=== PATIENT | male | born 1950 | race Two or more races ===

== ENCOUNTER 2022-01-16 14:16 | Inpatient (IN) | payer MEDICARE, OTHER ==
[2022-01-16] MEDS ORDERED: ONDANSETRON 4 MG/2 ML VIAL IVP STA (16:59)
[2022-01-16] MEDS ORDERED: SODIUM CHLORIDE 0.9% 500 ML 500 ML IV STA (16:59)
[2022-01-16] MEDS ORDERED: FAMOTIDINE 20 MG/2 ML VIAL IV STA (17:02)
[2022-01-16] MEDS ORDERED: SODIUM CHLORIDE 0.9% 1,000 ML IV STA ×2 (17:03)
--- NOTE | 2022-01-16 17:13 | ED ---
Nausea/Vomiting/Diarrhea HPI - General Chief complaint: Nausea/Vomiting/Diarrhea Stated complaint: Hernia, Nausea, revisit Time Seen by Provider: 01/16/22 16:47 Source: patient, family, RN notes reviewed, old records reviewed Mode of arrival: ambulatory Limitations: no limitations - History of Present Illness Initial comments: 71-year-old male history of umbilical hernia who was seen here yesterday had a reduction of his hernia he had symptoms starting 4 days ago. Discharged with since being discharged he states he had nausea vomiting decreased oral intake no bowel movement the has passed a slight amount of gas he states. He states last night he had every 20 minutes dry heaves. He's had some fever and chills with smelly urine. This was a she's had some burning pain to the upper abdomen going up into his chest. He states he does vomit it is bilious. No increased pain with deep breathing. He does state her hurts when he tries to lay down flat. MD complaint: nausea, vomiting, other - Related Data Allergies Allergy/AdvReac Type Severity Reaction Status Date / Time No Known Allergies Allergy Verified 01/16/22 16:24 Review of Systems ROS Statement: Those systems with pertinent positive or pertinent negative responses have been documented in the HPI. ROS Other: All systems not noted in ROS Statement are negative. Past Medical History Past Medical History: Hypertension Additional Past Medical History / Comment(s): hernia History of Any Multi-Drug Resistant Organisms: None Reported Past Surgical History: No Surgical Hx Reported Past Psychological History: No Psychological Hx Reported Smoking Status: Never smoker Past Alcohol Use History: Daily Past Drug Use History: None Reported General Exam - General Exam Comments Initial Comments: This is a well-developed well-nourished awake alert oriented times 3 male he does demonstrate an obese abdomen Limitations: no limitations General appearance: alert, anxious Head exam: Present: atraumatic, normocephalic, normal inspection Eye exam: Present: normal appearance, PERRL, EOMI. Absent: scleral icterus, conjunctival injection, periorbital swelling ENT exam: Present: mucous membranes dry Neck exam: Present: normal inspection, full ROM, other (No stridor JVD or bruits). Absent: tenderness, meningismus, lymphadenopathy Respiratory exam: Present: normal lung sounds bilaterally. Absent: respiratory distress, wheezes, rales, rhonchi, stridor Cardiovascular Exam: Present: regular rate, normal rhythm, normal heart sounds. Absent: systolic murmur, diastolic murmur, rubs, gallop, clicks GI/Abdominal exam: Present: soft, distended, tenderness (Obese abdomen minimal tenderness palpation at this time. He has palpable.), normal bowel sounds. Absent: guarding, rebound, rigid, bruit, pulsatile mass Extremities exam: Present: normal inspection, full ROM, normal capillary refill. Absent: tenderness, pedal edema, joint swelling, calf tenderness Back exam: Present: normal inspection Neurological exam: Present: alert, oriented X3, CN II-XII intact Psychiatric exam: Present: normal affect, normal mood Skin exam: Present: warm, dry, intact, normal color. Absent: rash Course Vital Signs 01/16/22 16:20 Temperature 98.1 F Pulse Rate 83 Respiratory 20 Rate Blood Pressure 163/92 Medical Decision Making - Medical Decision Making I did discuss the case with Dr. chavez and with Dr. Andrews patient be admitted IV hydration and the patient can be given ice chips. - Lab Data Result diagrams: 01/16/22 17:48 01/16/22 17:48 Lab Results 01/16/22 01/16/22 01/16/22 Range/Units 17:48 17:48 17:48 WBC 12.3 H (3.8-10.6) k/uL RBC 5.22 (4.30-5.90) m/uL Hgb 15.7 (13.0-17.5) gm/dL Hct 47.8 (39.0-53.0) % MCV 91.6 (80.0-100.0) fL MCH 30.1 (25.0-35.0) pg MCHC 32.9 (31.0-37.0) g/dL RDW 13.1 (11.5-15.5) % Plt Count 197 (150-450) k/uL MPV 9.4 Neutrophils % 78 % Lymphocytes % 12 % Monocytes % 8 % Eosinophils % 1 % Basophils % 1 % Neutrophils # 9.7 H (1.3-7.7) k/uL Lymphocytes # 1.4 (1.0-4.8) k/uL Monocytes # 0.9 (0-1.0) k/uL Eosinophils # 0.1 (0-0.7) k/uL Basophils # 0.1 (0-0.2) k/uL Sodium 130 L (137-145) mmol/L Potassium 4.3 (3.5-5.1) mmol/L Chloride 90 L (98-107) mmol/L Carbon Dioxide 30 (22-30) mmol/L Anion Gap 10 mmol/L BUN 31 H (9-20) mg/dL Creatinine 0.77 (0.66-1.25) mg/dL Est GFR (CKD-EPI)AfAm >90 (>60 ml/min/1.73 sqM) Est GFR (CKD-EPI)NonAf >90 (>60 ml/min/1.73 sqM) Glucose 127 H (74-99) mg/dL Plasma Lactic Acid Emanuel (0.7-2.0) mmol/L Calcium 9.9 (8.4-10.2) mg/dL Magnesium 2.1 (1.6-2.3) mg/dL Total Bilirubin 0.9 (0.2-1.3) mg/dL AST 39 (17-59) U/L ALT 45 (4-49) U/L Alkaline Phosphatase 46 (38-126) U/L Creatine Kinase 58 (55-170) U/L Troponin I (0.000-0.034) ng/mL Total Protein 7.5 (6.3-8.2) g/dL Albumin 4.7 (3.5-5.0) g/dL Lipase 120 (23-300) U/L Urine Color Yellow Urine Appearance Clear (Clear) Urine pH 6.5 (5.0-8.0) Ur Specific [place] >1.050 H (1.001-1.035) Urine Protein Trace H (Negative) Urine Glucose (UA) Negative (Negative) Urine Ketones Negative (Negative) Urine Blood Negative (Negative) Urine Nitrite Negative (Negative) Urine Bilirubin Negative (Negative) Urine Urobilinogen <2.0 (<2.0) mg/dL Ur Leukocyte Esterase Negative (Negative) 01/16/22 01/16/22 Range/Units 17:48 17:48 WBC (3.8-10.6) k/uL RBC (4.30-5.90) m/uL Hgb (13.0-17.5) gm/dL Hct (39.0-53.0) % MCV (80.0-100.0) fL MCH (25.0-35.0) pg MCHC (31.0-37.0) g/dL RDW (11.5-15.5) % Plt Count (150-450) k/uL MPV Neutrophils % % Lymphocytes % % Monocytes % % Eosinophils % % Basophils % % Neutrophils # (1.3-7.7) k/uL Lymphocytes # (1.0-4.8) k/uL Monocytes # (0-1.0) k/uL Eosinophils # (0-0.7) k/uL Basophils # (0-0.2) k/uL Sodium (137-145) mmol/L Potassium (3.5-5.1) mmol/L Chloride (98-107) mmol/L Carbon Dioxide (22-30) mmol/L Anion Gap mmol/L BUN (9-20) mg/dL Creatinine (0.66-1.25) mg/dL Est GFR (CKD-EPI)AfAm (>60 ml/min/1.73 sqM) Est GFR (CKD-EPI)NonAf (>60 ml/min/1.73 sqM) Glucose (74-99) mg/dL Plasma Lactic Acid Emanuel 1.2 (0.7-2.0) mmol/L Calcium (8.4-10.2) mg/dL Magnesium (1.6-2.3) mg/dL Total Bilirubin (0.2-1.3) mg/dL AST (17-59) U/L ALT (4-49) U/L Alkaline Phosphatase (38-126) U/L Creatine Kinase (55-170) U/L Troponin I <0.012 (0.000-0.034) ng/mL Total Protein (6.3-8.2) g/dL Albumin (3.5-5.0) g/dL Lipase (23-300) U/L Urine Color Urine Appearance (Clear) Urine pH (5.0-8.0) Ur Specific [place] (1.001-1.035) Urine Protein (Negative) Urine Glucose (UA) (Negative) Urine Ketones (Negative) Urine Blood (Negative) Urine Nitrite (Negative) Urine Bilirubin (Negative) Urine Urobilinogen (<2.0) mg/dL Ur Leukocyte Esterase (Negative) - Radiology Data Radiology results: report reviewed (Image reviewed as well as report evidence of mechanical bowel obstruction with incarceration of the umbilical herniaablation noted.), image reviewed Disposition Clinical Impression: Small bowel obstruction, Incarcerated umbilical hernia, Dehydration, Nausea & vomiting, Failure of outpatient treatment Disposition: ADMITTED IP TO THIS [facility] Condition: Stable Referrals: John Mederos DO [Primary Care Provider] - 1-2 days Decision Date: 01/16/22 Decision Time: 21:00
[2022-01-16 18:09] LABS: Basophils # (A) 0.1 k/uL (0-0.2); Basophils % (A) 1 %; Eosinophils # (A) 0.1 k/uL (0-0.7); Eosinophils % (A) 1 %; HCT 47.8 % (39.0-53.0); HGB 15.7 gm/dL (13.0-17.5); Lymphocytes # (A) 1.4 k/uL (1.0-4.8); Lymphocytes % (A) 12 %; MCH 30.1 pg (25.0-35.0); MCHC 32.9 g/dL (31.0-37.0); MCV 91.6 fL (80.0-100.0); Mean Platelet Volume 9.4; Monocytes # (A) 0.9 k/uL (0-1.0); Monocytes % (A) 8 %; Neutrophils # (A) 9.7 k/uL (1.3-7.7); Neutrophils % (A) 78 %; Platelet Count 197 k/uL (150-450); RBC 5.22 m/uL (4.30-5.90); RDW 13.1 % (11.5-15.5); WBC 12.3 k/uL (3.8-10.6)
--- NOTE | 2022-01-16 18:12 | XR ---
EXAMINATION TYPE: XR KUB DATE OF EXAM: 01/16/2022 COMPARISON: None HISTORY: Abdominal pain TECHNIQUE: 2 views upright FINDINGS: There are multiple dilated small bowel fluid levels. No free air. Lung bases are clear of c onsolidation. There are no definite calcifications over the kidneys. IMPRESSION: Dilated small bowel suggestive of mechanical small bowel obstruction. No free air. Intest inal dilation similar to CT scan yesterday.
[2022-01-16 18:15] LABS: Glucose 127 mg/dL (74-99)
[2022-01-16 18:16] LABS: ALT 45 U/L (4-49); AST 39 U/L (17-59); African American GFR (CKD) >90 (>60 ml/min/1.73 sqM); Albumin 4.7 g/dL (3.5-5.0); Alkaline Phosphatase 46 U/L (38-126); Anion Gap 10 mmol/L; Blood Urea Nitrogen 31 mg/dL (9-20); Calcium 9.9 mg/dL (8.4-10.2); Carbon Dioxide 30 mmol/L (22-30); Chloride 90 mmol/L (98-107); Creatine Kinase 58 U/L (55-170); Lipase 120 U/L (23-300); Magnesium 2.1 mg/dL (1.6-2.3); Non-African American GFR(CKD) >90 (>60 ml/min/1.73 sqM); Potassium 4.3 mmol/L (3.5-5.1); Sodium 130 mmol/L (137-145); Total Bilirubin 0.9 mg/dL (0.2-1.3); Total Protein 7.5 g/dL (6.3-8.2)
--- NOTE | 2022-01-16 19:51 | CT ---
EXAMINATION TYPE: CT abdomen pelvis w con DATE OF EXAM: 01/16/2022 COMPARISON: Yesterday HISTORY: Abdominal pain, unbillical hernia. N/V. Revisit from yesterday. CT DLP: 3406.4 mGycm Automated exposure control for dose reduction was used. CONTRAST: Performed with IV Contrast, patient injected with 100 mL of Isovue 300. Images obtained from the diaphragm to the floor the pelvis with IV contrast. There is mild subsegmental atelectasis at the lung bases. Heart size is normal. No pericardial effusi on. Liver is intact. There is some mild fatty infiltration of the liver. There is large fluid filled stomach. Spleen is intact. There is no pancreatic mass. There is extensive fatty infiltration of the pancreas. Gallbladder is intact. The bile ducts are not dilated. There is no adrenal mass. Kidneys show satisfactory contrast opacification. There is no hydronephrosi s. Ureters are not dilated. There is large incarcerated umbilical hernia containing loop of small bow el. There are some multiple dilated air and fluid-filled small bowel loops in the midabdomen. Small b owel measures up to 3.5 cm. No free air. No ascites. Bladder distends smoothly. No pelvic mass. No fr ee fluid in the pelvis. No inguinal hernia. Distal ileum is not dilated. The lumbar vertebra appear intact. No compression fracture. There is mild vacuum disc at L3-4 L4-5. Bony pelvis is intact. Hip joints are intact. There is some mild spurring of the acetabula. IMPRESSION: Incarcerated umbilical hernia containing small bowel and there is evidence of a mechanical small jose miguel l obstruction due to the hernia. The incarcerated loop of bowel is a change compared to exam yesterda y.
[2022-01-16 20:31] LABS: Appearance,Urine Clear (Clear); Bilirubin,Urine Negative (Negative); Blood,Urine Negative (Negative); Color,Urine Yellow; Glucose,Urine (UA) Negative (Negative); Ketones,Urine Negative (Negative); Leukocyte Esterase,Urine Negative (Negative); Nitrite,Urine Negative (Negative); PH, Urine 6.5 (5.0-8.0); Protein,Urine Trace (Negative); Specific Gravity,Urine >1.050 (1.001-1.035); Urobilinogen,Urine <2.0 mg/dL (<2.0)
[2022-01-16] MEDS ORDERED: NALOXONE 0.4 MG/ML 1 ML VIAL IV PRN (21:39)
[2022-01-16] MEDS ORDERED: ONDANSETRON 4 MG/2 ML VIAL IVP PRN (21:39)
[2022-01-16] MEDS ORDERED: HYDROmorphone 2 MG TAB PO PRN (23:00)
[2022-01-17] MEDS: SODIUM CHLORIDE 0.9% 1,000 ML IV SCH ×4 (00:49→23:09)
[2022-01-17 05:42] LABS: Basophils # (A) 0.1 k/uL (0-0.2); Basophils % (A) 0 %; Eosinophils # (A) 0.1 k/uL (0-0.7); Eosinophils % (A) 1 %; HCT 42.8 % (39.0-53.0); HGB 13.9 gm/dL (13.0-17.5); Lymphocytes % (A) 17 %; MCH 30.5 pg (25.0-35.0); MCHC 32.6 g/dL (31.0-37.0); MCV 93.6 fL (80.0-100.0); Mean Platelet Volume 9.5; Monocytes # (A) 1.1 k/uL (0-1.0); Monocytes % (A) 9 %; Neutrophils # (A) 8.2 k/uL (1.3-7.7); Neutrophils % (A) 71 %; Platelet Count 175 k/uL (150-450); RBC 4.57 m/uL (4.30-5.90); RDW 13.2 % (11.5-15.5); WBC 11.6 k/uL (3.8-10.6)
[2022-01-17 06:55] LABS: ALT 46 U/L (4-49); AST 33 U/L (17-59); African American GFR (CKD) >90 (>60 ml/min/1.73 sqM); Albumin 3.6 g/dL (3.5-5.0); Alkaline Phosphatase 44 U/L (38-126); Anion Gap 7 mmol/L; Blood Urea Nitrogen 29 mg/dL (9-20); Calcium 8.9 mg/dL (8.4-10.2); Carbon Dioxide 28 mmol/L (22-30); Chloride 97 mmol/L (98-107); Glucose 99 mg/dL (74-99); Non-African American GFR(CKD) >90 (>60 ml/min/1.73 sqM); Potassium 3.5 mmol/L (3.5-5.1); Sodium 132 mmol/L (137-145); Total Bilirubin 0.8 mg/dL (0.2-1.3); Total Protein 5.9 g/dL (6.3-8.2)
[2022-01-17] MEDS ORDERED: ceFAZolin 3 GM in SODIUM CHLORIDE 0.9% 100 ML IVPB PRN (07:00)
--- NOTE | 2022-01-17 08:18 | XR ---
EXAMINATION TYPE: XR abdomen 2V DATE OF EXAM: 01/17/2022 COMPARISON: X-ray dated 01/16/2022 INDICATION: Bowel obstruction TECHNIQUE: 4 views of the abdomen FINDINGS: No free air under the diaphragm. Multiple air-fluid levels with small bowel dilatation measuring up t o 5.9 cm seen in the left side of the abdomen. Right-sided small bowel loops are not dilated. This is suggestive of acute mechanical small bowel obstruction. No evidence of colonic obstruction. Gas is seen in the rectum. Degenerative changes of the lower thor acic spine and lower lumbar spine. IMPRESSION: Signs of acute mechanical small bowel obstruction as described above, for clinical correlation and musa rgical consultation.
[2022-01-17] MEDS ORDERED: cloNIDine 0.1 MG/24HR PATCH TRANSDERM SCH (09:00)
[2022-01-17] MEDS: LOSARTAN-HCTZ 50-12.5 MG 1 EACH TAB PO SCH (09:18)
[2022-01-17] MEDS: PANTOPRAZOLE 40 MG/10 ML VIAL IV SCH (09:18)
[2022-01-17] MEDS: LOSARTAN 50 MG TAB PO SCH (09:18)
--- NOTE | 2022-01-17 10:40 | P.CRDCN ---
History of Present Illness History of present illness: HISTORY OF PRESENTING ILLNESS This is a pleasant 71-year-old male past medical history significant for with hypertension, GERD. 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 We have been asked to see in consultation for cardiac clearance. Patient presents emergency department with worsening abdominal pain, nausea, vomiting, diarrhea. CT abdomen and pelvis revealed incarcerated hernia containing small bowel and there is evidence of a mechanical small bowel obstruction due to the hernia. Surgery was consulted, possible plan for Robotic ventral hernia repair today. He currently denies any abdominal pain, no nausea or vomiting. Patient denies any chest pain, shortness of breath, lightheadedness, dizziness, syncope or near syncope. He denies any history of coronary artery disease, [place], stroke, diabetes. He denies any family history of coronary artery disease. He is a nonsmoker. He states he is somewhat sedentary at home, but able to walk 1520 minutes on the treadmill. DIAGNOSTICS EKG reveals sinus rhythm, heart rate 81, no acute abnormalities. Laboratory reviewed, troponin negative, WBC 11.6, hemoglobin 13.9, platelets 175, sodium 132, potassium 3.5, BUN 29, serum creatinine 0.8, magnesium 2.1, lipase within normal limits Current home medications include losartan/hydrochlorothiazide 69368.5mg daily, omeprazole CT abdomen and pelvis revealed incarcerated hernia containing small bowel and there is evidence of a mechanical small bowel obstruction due to the hernia. Abdominal x-ray today revealed signs of acute mechanical small bowel obstruction. REVIEW OF SYSTEMS At the time of my exam: CONSTITUTIONAL: Denies fever or chills. CARDIOVASCULAR: Denies chest pain, shortness of breath, orthopnea, PND or palpitations. RESPIRATORY: Denies cough. GASTROINTESTINAL: Denies abdominal pain, diarrhea, constipation, nausea or vomiting. MUSCULOSKELETAL: Denies myalgias. NEUROLOGIC: Denies numbness, tingling, headacbe or weakness. ENDOCRINE: Denies fatigue, weight change, polydipsia or polyurina. GENITOURINARY: Denies burning, hematuria or urgency with micturation. HEMATOLOGIC: Denies history of anemia or bleeding. PHYSICAL EXAMINATION Blood pressure 141/96, heart rate 76, afebrile, oxygen saturation 94% on room air CONSTITUTIONAL: No apparent distress. HEENT: Head is normocephalic. Pupils are equal, round. Sclerae anicteric. Mucous membranes of the mouth are moist. No JVD. No carotid bruit. CHEST EXAMINATION: Lungs are clear to auscultation. No chest wall tenderness is noted on palpation or with deep breathing. HEART EXAMINATION: Regular rate and rhythm. S1, S2 heard. No murmurs, gallops or rub. ABDOMEN: Distended Positive bowel sounds. EXTREMITIES: 2+ peripheral pulses, no lower extremity edema and no calf tenderness. NEUROLOGIC EXAMINATION: Patient is awake, alert and oriented x3. ASSESSMENT Incarcerated Hernia Mechanical small bowel obstruction History of hypertension GERD PLAN 2D echocardiogram ordered From cardiology perspective, There are no absolute contraindications to undergo surgery at this time. Patient is hemodynamically stable. Patient is able to perform >4 METs levels of activity and does not have any acute cardiac conditi ons. Nurse practitioner note has been reviewed by physician. Signing provider agrees with the documented findings, assessment, and plan of care. Past Medical History Past Medical History: Hypertension Additional Past Medical History / Comment(s): hernia, squamous cell skin ca removed History of Any Multi-Drug Resistant Organisms: None Reported Past Surgical History: No Surgical Hx Reported Additional Past Surgical History / Comment(s): skin ca removal Past Psychological History: No Psychological Hx Reported Smoking Status: Never smoker Past Alcohol Use History: Daily Past Drug Use History: None Reported Medications and Allergies Home Medications Medication Instructions Recorded Confirmed Type Losartan/Hydrochlorothiazide 1 tab PO DAILY 01/16/22 01/16/22 History [Losartan-Hctz 100-12.5 mg Tab] Omeprazole [PriLOSEC] 40 mg PO DAILY PRN 01/16/22 01/16/22 History Allergies Allergy/AdvReac Type Severity Reaction Status Date / Time No Known Allergies Allergy Verified 01/16/22 21:57 Physical Exam Vitals: Vital Signs Temp Pulse Pulse Resp BP BP Pulse Ox 01/17/22 07:41 97.8 F 76 20 141/96 94 L 01/17/22 04:52 166/86 01/17/22 00:03 98.3 F 89 16 177/61 94 L 01/16/22 21:45 99.0 F 83 16 152/89 94 L 01/16/22 16:20 98.1 F 83 20 163/92 Intake and Output 01/16/22 01/17/22 01/17/22 22:59 06:59 14:59 Other: Weight 133.81 kg 133.81 kg Results 01/17/22 04:55 01/17/22 04:55 Cardiac Enzymes 01/16/22 01/16/22 01/17/22 Range/Units 17:48 17:48 04:55 AST 39 33 (17-59) U/L Troponin I <0.012 (0.000-0.034) ng/mL CBC 01/16/22 01/17/22 Range/Units 17:48 04:55 WBC 12.3 H 11.6 H (3.8-10.6) k/uL RBC 5.22 4.57 (4.30-5.90) m/uL Hgb 15.7 13.9 (13.0-17.5) gm/dL Hct 47.8 42.8 (39.0-53.0) % Plt Count 197 175 (150-450) k/uL Comprehensive Metabolic Panel 01/16/22 01/17/22 Range/Units 17:48 04:55 Sodium 130 L 132 L (137-145) mmol/L Potassium 4.3 3.5 (3.5-5.1) mmol/L Chloride 90 L 97 L (98-107) mmol/L Carbon Dioxide 30 28 (22-30) mmol/L BUN 31 H 29 H (9-20) mg/dL Creatinine 0.77 0.78 (0.66-1.25) mg/dL Glucose 127 H 99 (74-99) mg/dL Calcium 9.9 8.9 (8.4-10.2) mg/dL AST 39 33 (17-59) U/L ALT 45 46 (4-49) U/L Alkaline Phosphatase 46 44 (38-126) U/L Total Protein 7.5 5.9 L (6.3-8.2) g/dL Albumin 4.7 3.6 (3.5-5.0) g/dL Current Medications Generic Name Dose Route Start Last Admin Trade Name Freq PRN Reason Stop Dose Admin Enoxaparin Sodium 40 mg 01/17/22 06:30 Enoxaparin 40 Mg/0.4 Ml Syringe SQ Q24H JULIANE HCTZ/Losartan Potassium 1 each 01/17/22 09:00 Losartan-Hctz 50-12.5 Mg 1 Each Tab PO DAILY JULIANE Hydromorphone HCl 1 mg 01/16/22 23:00 Hydromorphone 2 Mg Tab PO Q3HR PRN Severe Pain Sodium Chloride 1,000 mls @ 130 mls/hr 01/16/22 21:45 01/17/22 00:49 Saline 0.9% IV 130 mls/hr .[id number] JULIANE Administration Cefazolin Sodium 3 gm/ Sodium 100 mls @ 200 mls/hr 01/17/22 07:00 Chloride IVPB 01/18/22 23:00 ONCE PRN Pre-Op Protocol Losartan Potassium 50 mg 01/17/22 09:00 Losartan 50 Mg Tab PO DAILY JULIANE Naloxone HCl 0.2 mg 01/16/22 21:39 Naloxone 0.4 Mg/Ml 1 Ml Vial IV Q2M PRN Opioid Reversal Ondansetron HCl 4 mg 01/16/22 21:39 01/16/22 23:14 Ondansetron 4 Mg/2 Ml Vial IVP 4 mg Q8HR PRN Administration Nausea And Vomiting Pantoprazole Sodium 40 mg 01/17/22 09:00 Pantoprazole 40 Mg/10 Ml Vial IV DAILY JULIANE Intake and Output 01/16/22 01/17/22 01/17/22 22:59 06:59 14:59 Other: Weight 133.81 kg 133.81 kg 01/17/22 04:55 01/17/22 04:55
--- NOTE | 2022-01-17 14:43 | P.GSCN ---
History of Present Illness Consult date: 01/17/22 History of present illness: CHIEF COMPLAINT: Vomiting HISTORY OF PRESENT ILLNESS: This is a 71-year-old male with a known history of umbilical hernia for about 7 years. Two days ago patient came into the ER due to abdominal discomfort and dry heaves. He had his hernia reduced. He had been doing well. However, he returned to the ER yesterday due to significant dry heaves, episode of vomiting bile and unable to reduce the hernia. He reports he has not had any stool for about 4 days. He is having flatus. His computed tomography scan had shown incarcerated umbilical hernia with dilation of small bowel suggestive of mechanical small bowel obstruction. He denies any cardiac history. Denies any past surgical history on the abdomen. PAST MEDICAL HISTORY: See list. PAST SURGICAL HISTORY: See list. MEDICATIONS: See list. ALLERGIES: See list. SOCIAL HISTORY: No illicit drug use. REVIEW OF SYSTEMS: CONSTITUTIONAL: Denies fever or chills. HEENT: Denies blurred vision, vision changes, or eye pain. Denies hemoptysis ENDOCRINE: Denies heat or cold intolerance. CARDIOVASCULAR: Denies chest pain or pressure. RESPIRATORY: No shortness of breath. GASTROINTESTINAL: Please refer to HPI NEURO: Denies history of seizures. PSYCH: No depression or suicidal ideation HEMATOLOGIC: Denies bleeding disorders. LYMPHATIC: The patient denies any lumps and bumps around the neck. GENITOURINARY: Denies any blood in urine or increased urinary frequency. MUSCULOSKELETAL: Denies myalgias. Denies joint swelling. Denies decreased range of motion beyond patients baseline. SKIN: Denies pruitis. Denies rash. PHYSICAL EXAM: VITAL SIGNS: Reviewed GENERAL: Well-developed in no acute distress. HEENT: No sclera icterus. Extraocular movements grossly intact. Moist buccal mucosa. Head is atraumatic, normocephalic. Hears conversational speech. No nasal d rainage. NECK: Supple without lymphadenopathy. CHEST: Non-labored respirations and equal bilateral excursions. CARDIOVASCULAR: Palpable 2+ radial pulses. ABDOMEN: Soft. Nondistended. Umbilical hernia unable to be reduced. Minimal tenderness with palpation. No discoloration. MUSCULOSKELETAL: No clubbing or cyanosis. NEUROLOGIC: No focal or lateralizing signs. Cranial nerves II through XII grossly intact. PSYCH: Appropriate affect. Alert and oriented to person, place and time. SKIN: Well perfused. Good skin turgor. LABORATORY DATA: WBC 11.6 Hgb 13.9 platelets 175 Sodium 132 potassium 3.5 creatinine 0.78 LFTs within normal range Lipase 120 IMAGING: Currently having issues with [employer] system. Unable to open the official computed tomography scan report ASSESSMENT: 1. Incarcerated umbilical hernia causing small bowel obstruction PLAN: -Patient scheduled for robotic ventral hernia repair with Dr. Jimenez today -Keep patient nothing by mouth -Patient was seen evaluated by cardiology for cardiac clearance -Continue supportive care -Continue IV fluids -Continue antiemetics Physician Forensic Dna Analyst note has been reviewed by physician. Signing provider agrees with the documented findings, assessment, and plan of care. REASON FOR CONSULTATION: Incarcerated ventral hernia with bowel obstruction HISTORY OF PRESENT ILLNESS: The patient is a 71 year old male who reports less than 10 year history of abdominal ventral hernia. Patient presents with morbid obesity BMI 46.2. Denies been hospitalized. Patient did go to the emergency room 24 hours prior to admission for incarcerated hernia which was attempted for reduction. His symptoms recurred. Diagnostic images demonstrated bowel obstruction. As result, patient was admitted. He is passing flatus. He is having bowel movements. Family is at bedside. Abdominal pain tolerable. PAST MEDICAL HISTORY: See list and reviewed PAST SURGICAL HISTORY: See list and reviewed MEDICATIONS: See list and reviewed ALLERGIES: See list and reviewed SOCIAL HISTORY: See list and reviewed FAMILY HISTORY: See list and reviewed REVIEW OF ORGAN SYSTEMS: CONSTITUTIONAL: No fevers or chills. Morbid obesity, BMI 46.2. EYES: Denies any trouble with vision. No glasses. HEENT: No difficulties with hearing. No nosebleeds. No difficulty swallowing. RESPIRATORY: Denies pneumonia. Denies any troubles with breathing or dyspnea on exertion. CARDIOVASCULAR: Has hypertension. GASTROINTESTINAL: Has new diarrhea since incarcerated hernia. Has gastroesophageal reflux disease. GENITOURINARY: Denies any blood in urine or increased urinary frequency. NEUROLOGICAL: Denies any numbness or tingling along the distal extremities. No seizure disorders or headaches. MUSCULOSKELETAL: Denies any back pain, stiffness or joint arthritis. SKIN: No current skin cancer. No rash. PSYCHIATRIC: Denies current depression or suicidal thoughts. ENDOCRINE: Denies current thyroid disorders. Denies any blood sugar glucose intolerance. HEME/LYMPHATIC: Denies any lumps and bumps around the neck. No recent deep venous thrombosis. ALLERGY/IMMUNOLOGY: No immunoglobulin therapy. No immune deficiencies. BREAST: Denies current breast lumps, pain or nipple discharge. PHYSICAL EXAM: VITALS: Reviewed CONSTITUTIONAL: Well developed and in no acute distress. EYES: Conjuctivae without sclera icterus. Extraocular movements grossly intact. HEAD, EARS, NOSE, THROAT: Moist buccal mucosa. Head is atraumatic, n ormocephalic. Hears conversational speech. No nasal drainage. NECK: Supple. No JV distention. No thyroidomegaly. RESPIRATORY: Non-labored respirations and equal bilateral excursions. No gross wheezes. CARDIOVASCULAR: Palpable 2+ radial pulses. ABDOMEN: Protuberant, incarcerated ventral hernia over 15 cm of epigastrium. LYMPH: No neck lymphadenopathy. MUSCULOSKELETAL: No clubbing cyanosis or edema. SKIN: Warm and well perfused with good skin turgor. NEUROLOGIC: Cranial nerves II through XII grossly intact. No focal or lateralizing signs. PSYCH: Appropriate affect. Alert and oriented to person, place and time. Displays appropriate insight. CLINCAL LABS: Reviewed. WBC down 12.6-11.3. IMAGING: Independently reviewed. CT of the abdomen and pelvis demonstrating incarcerated small bowel with a large abdominal ventral hernia. Small bowel distally decompressed. This is my independent interpretation. ASSESSMENT: 1. Small bowel obstruction due to an incarcerated initial ventral hernia PLAN: 1. IV fluid hydration. 2. With his BMI over 40 and hypertension including age over 50, urgent cardiology consultation obtained for cardiac risk assessment. 3. Patient reports no prior abdominal surgeries. Robotic ventral hernia repair described for the least morbidity due to body habitus 4. Patient elevated risk for complications due to hypertensive heart disease, BMI over 40, and incarcerated small bowel obstruction ADVANCE DIRECTIVE: Thank you for this kind consultation. Past Medical History Past Medical History: Hypertension Additional Past Medical History / Comment(s): hernia, squamous cell skin ca removed History of Any Multi-Drug Resistant Organisms: None Reported Past Surgical History: No Surgical Hx Reported Additional Past Surgical History / Comment(s): skin ca removal Past Psychological History: No Psychological Hx Reported Smoking Status: Never smoker Past Alcohol Use History: Daily Past Drug Use History: None Reported Medications and Allergies Home Medications Medication Instructions Recorded Confirmed Type Losartan/Hydrochlorothiazide 1 tab PO DAILY 01/16/22 01/16/22 History [Losartan-Hctz 100-12.5 mg Tab] Omeprazole [PriLOSEC] 40 mg PO DAILY PRN 01/16/22 01/16/22 History Allergies Allergy/AdvReac Type Severity Reaction Status Date / Time No Known Allergies Allergy Verified 01/16/22 21:57 Surgical - Exam Vital Signs Temp Pulse Resp BP 98.1 F 83 20 163/92 01/16/22 16:20 01/16/22 16:20 01/16/22 16:20 01/16/22 16:20 Results - Labs 01/17/22 04:55 01/17/22 04:55 Abnormal Lab Results - Last 24 Hours (Table) 01/16/22 01/16/22 01/16/22 Range/Units 17:48 17:48 17:48 WBC 12.3 H (3.8-10.6) k/uL Neutrophils # 9.7 H (1.3-7.7) k/uL Monocytes # (0-1.0) k/uL Sodium 130 L (137-145) mmol/L Chloride 90 L (98-107) mmol/L BUN 31 H (9-20) mg/dL Glucose 127 H (74-99) mg/dL Total Protein (6.3-8.2) g/dL Ur Specific [place] >1.050 H (1.001-1.035) Urine Protein Trace H (Negative) 01/17/22 01/17/22 Range/Units 04:55 04:55 WBC 11.6 H (3.8-10.6) k/uL Neutrophils # 8.2 H (1.3-7.7) k/uL Monocytes # 1.1 H (0-1.0) k/uL Sodium 132 L (137-145) mmol/L Chloride 97 L (98-107) mmol/L BUN 29 H (9-20) mg/dL Glucose (74-99) mg/dL Total Protein 5.9 L (6.3-8.2) g/dL Ur Specific [place] (1.001-1.035) Urine Protein (Negative) Diabetes panel 01/16/22 01/17/22 Range/Units 17:48 04:55 Sodium 130 L 132 L (137-145) mmol/L Potassium 4.3 3.5 (3.5-5.1) mmol/L Chloride 90 L 97 L (98-107) mmol/L Carbon Dioxide 30 28 (22-30) mmol/L BUN 31 H 29 H (9-20) mg/dL Creatinine 0.77 0.78 (0.66-1.25) mg/dL Glucose 127 H 99 (74-99) mg/dL Calcium 9.9 8.9 (8.4-10.2) mg/dL AST 39 33 (17-59) U/L ALT 45 46 (4-49) U/L Alkaline Phosphatase 46 44 (38-126) U/L Total Protein 7.5 5.9 L (6.3-8.2) g/dL Albumin 4.7 3.6 (3.5-5.0) g/dL Calcium panel 01/16/22 01/17/22 Range/Units 17:48 04:55 Calcium 9.9 8.9 (8.4-10.2) mg/dL Albumin 4.7 3.6 (3.5-5.0) g/dL Pituitary panel 01/16/22 01/17/22 Range/Units 17:48 04:55 Sodium 130 L 132 L (137-145) mmol/L Potassium 4.3 3.5 (3.5-5.1) mmol/L Chloride 90 L 97 L (98-107) mmol/L Carbon Dioxide 30 28 (22-30) mmol/L BUN 31 H 29 H (9-20) mg/dL Creatinine 0.77 0.78 (0.66-1.25) mg/dL Glucose 127 H 99 (74-99) mg/dL Calcium 9.9 8.9 (8.4-10.2) mg/dL Adrenal panel 01/16/22 01/17/22 Range/Units 17:48 04:55 Sodium 130 L 132 L (137-145) mmol/L Potassium 4.3 3.5 (3.5-5.1) mmol/L Chloride 90 L 97 L (98-107) mmol/L Carbon Dioxide 30 28 (22-30) mmol/L BUN 31 H 29 H (9-20) mg/dL Creatinine 0.77 0.78 (0.66-1.25) mg/dL Glucose 127 H 99 (74-99) mg/dL Calcium 9.9 8.9 (8.4-10.2) mg/dL Total Bilirubin 0.9 0.8 (0.2-1.3) mg/dL AST 39 33 (17-59) U/L ALT 45 46 (4-49) U/L Alkaline Phosphatase 46 44 (38-126) U/L Total Protein 7.5 5.9 L (6.3-8.2) g/dL Albumin 4.7 3.6 (3.5-5.0) g/dL
--- NOTE | 2022-01-17 14:46 | P.HPIM ---
History of Present Illness This is a pleasant 71-year-old years old male with past medical history of hernia and hypertension. Presents because of nausea vomiting, he was in ER earlier FOR umbilical hernia which was reduced in the ER and he was discharged home Also patient had periumbilical abdominal pain and bulging, has been about 7/10 in severity, currently is much better, He had some light bowel movement today No chest pain or dyspnea but feels his urine is thinks without dysuria Denies smoking, alcohol occasionally, no illicit drugs Patient hemodynamically stable. Labs showing mild leukocytosis of 12.3 and 11.6, rest of BMP is unremarkable Sodium 132, rest of BMP and liver enzymes are unremarkable. Urine analysis is negative CT of the abdomen and pelvis: Incarcerated umbilical hernia containing small bowel and there is evidence of mechanical small bowel obstruction due to the hernia Abdominal x-ray this morning showing signs of acute mechanical small bowel obstruction I spoke with Dr. Angela about this admission last night, I recommended to contact the surgeon armor reconnaissance specialist and discuss case with him, Dr. Angela was planning to contact Dr. Andrews already In the ED he received IV fluid, symptomatic treatment, also patient was started on cefazolin by surgery team. Review of Systems CONSTITUTIONAL: No fever, no malaise, no fatigue. HEENT: No recent visual problems or hearing problems. Denied any sore throat. CARDIOVASCULAR: No orthopnea, PND, no palpitations, no syncope. PULMONARY: No shortness of breath, no cough, no hemoptysis. GASTROINTESTINAL: No diarrhea, . Normoactive bowel sounds. NEUROLOGICAL: No headaches, no weakness, no numbness. HEMATOLOGICAL: Denies any bleeding or petechiae. GENITOURINARY: Denies any burning micturition, frequency, or urgency. MUSCULOSKELETAL/RHEUMATOLOGICAL: Denies any joint pain, swelling, or any muscle pain. ENDOCRINE: Denies any polyuria or polydipsia. Past Medical History Past Medical History: Hypertension Additional Past Medical History / Comment(s): hernia, squamous cell skin ca re moved History of Any Multi-Drug Resistant Organisms: None Reported Past Surgical History: No Surgical Hx Reported Additional Past Surgical History / Comment(s): skin ca removal Past Psychological History: No Psychological Hx Reported Smoking Status: Never smoker Past Alcohol Use History: Daily Past Drug Use History: None Reported Medications and Allergies Home Medications Medication Instructions Recorded Confirmed Type Losartan/Hydrochlorothiazide 1 tab PO DAILY 01/16/22 01/16/22 History [Losartan-Hctz 100-12.5 mg Tab] Omeprazole [PriLOSEC] 40 mg PO DAILY PRN 01/16/22 01/16/22 History Allergies Allergy/AdvReac Type Severity Reaction Status Date / Time No Known Allergies Allergy Verified 01/16/22 21:57 Physical Exam Vitals: Vital Signs Temp Pulse Pulse Resp BP BP Pulse Ox 01/17/22 04:52 166/86 01/17/22 00:03 98.3 F 89 16 177/61 94 L 01/16/22 21:45 99.0 F 83 16 152/89 94 L 01/16/22 16:20 98.1 F 83 20 163/92 Intake and Output 01/16/22 01/17/22 01/17/22 22:59 06:59 14:59 Other: Weight 133.81 kg 133.81 kg GENERAL: The patient is alert and oriented x3, not in any acute distress. Obese HEENT: Pupils are round and equally reacting to light. EOMI. No scleral icterus. No conjunctival pallor. Normocephalic, atraumatic. No pharyngeal erythema. No thyromegaly. CARDIOVASCULAR: S1 and S2 present. No murmurs, rubs, or gallops. PULMONARY: Chest is clear to auscultation, no wheezing or crackles. -ABDOMEN: Soft, mild umbilical tenderness with umbilical hernia, nondistended, normoactive bowel sounds. No palpable organomegaly. MUSCULOSKELETAL: No joint swelling or deformity. EXTREMITIES: No cyanosis, clubbing, or pedal edema. NEUROLOGICAL: Gross neurological examination did not reveal any focal deficits. SKIN: No rashes. No petechiae Results CBC & Chem 7: 01/17/22 04:55 01/17/22 04:55 Labs: Abnormal Lab Results - Last 24 Hours (Table) 01/16/22 01/16/22 01/16/22 Range/Units 17:48 17:48 17:48 WBC 12.3 H (3.8-10.6) k/uL Neutrophils # 9.7 H (1.3-7.7) k/uL Monocytes # (0-1.0) k/uL Sodium 130 L (137-145) mmol/L Chloride 90 L (98-107) mmol/L BUN 31 H (9-20) mg/dL Glucose 127 H (74-99) mg/dL Total Protein (6.3-8.2) g/dL Ur Specific [place] >1.050 H (1.001-1.035) Urine Protein Trace H (Negative) 01/17/22 01/17/22 Range/Units 04:55 04:55 WBC 11.6 H (3.8-10.6) k/uL Neutrophils # 8.2 H (1.3-7.7) k/uL Monocytes # 1.1 H (0-1.0) k/uL Sodium 132 L (137-145) mmol/L Chloride 97 L (98-107) mmol/L BUN 29 H (9-20) mg/dL Glucose (74-99) mg/dL Total Protein 5.9 L (6.3-8.2) g/dL Ur Specific [place] (1.001-1.035) Urine Protein (Negative) Thrombosis Risk Factor Assmnt - Choose All That Apply Any of the Below Risk Factors Present?: No Other Risk Factors: Yes Each Risk Factor Represents 2 Points: Age 61-74 years Other congenital or acquired thrombophilia - If yes, enter type in comment: No Thrombosis Risk Factor Assessment Total Risk Factor Score: 2 Thrombosis Risk Factor Assessment Level: Low Risk Assessment and Plan Assessment: Acute small bowel obstruction, secondary to incarcerated umbilical hernia Hypertension Obesity with BMI of 46.2 Plan: This is a pleasant 71 years old male who presents with SBO an incarcerated hernia Continue with IV hydration Continue with antibiotic Surgical team evaluation Bowel rest and pain management Small dose of clonidine patch while nothing by mouth Labs and medication were reviewed.. Continue same treatment. Continue with symptomatic treatment. Resume home medication. Monitor lytes and vitals. DVT and GI prophylaxis. Further recommendations depends on the clinical course of the patient DVT prophylaxis: Subcutaneous Lovenox GI Prophylaxis: Ppi Prognosis is guarded
[2022-01-17] MEDS: ENOXAPARIN 40 MG/0.4 ML SYRINGE SQ SCH (16:13)
[2022-01-17] MEDS ORDERED: HEPARIN SODIUM,PORCINE/PF 5,000 UNIT/0.5 ML SYRINGE SQ PRN (18:55)
[2022-01-17] MEDS ORDERED: MIDAZOLAM 2 MG/2 ML VIAL ONE (19:12)
[2022-01-17] MEDS ORDERED: PROPOFOL 10 MG/ML 20 ML VIAL IV ONE (19:12)
[2022-01-17] MEDS ORDERED: LIDOCAINE 2% INJ 20 MG/ML (2 ML VIAL) ONE (19:12)
[2022-01-17] MEDS ORDERED: SUCCINYLCHOLINE CHLORIDE VIAL 200 MG/10 ML VIAL IV ONE (19:12)
[2022-01-17] MEDS ORDERED: NEOSTIGMINE 1 MG/ML 10 ML VIAL ONE (19:12)
[2022-01-17] MEDS ORDERED: ROCURONIUM 10 MG/ML (5 ML VIAL) IV ONE (19:12)
[2022-01-17] MEDS ORDERED: fentaNYL (PF) 50 MCG/ML 2 ML AMP ONE (19:12)
[2022-01-17] MEDS ORDERED: GLYCOPYRROLATE 0.2 MG/ML 2 ML VIAL ONE (19:12)
[2022-01-17] MEDS ORDERED: PHENYLEPHRINE-0.9% NACL SYG 1,000 MCG/10 ML SYRINGE ONE (19:12)
[2022-01-17] MEDS ORDERED: LACTATED RINGERS 1,000 ML IV ONE (19:14)
[2022-01-17] MEDS ORDERED: BUPIVACAINE (PF) 0.5% 30 ML VIAL SQ ONE (19:14)
--- NOTE | 2022-01-17 20:55 | P.OP ---
Date of Procedure: 01/17/22 Description of Procedure: SURGEON: RAMONA GROSS MD PREOPERATIVE DIAGNOSES: 1. Incarcerated epigastric ventral hernia with bowel obstruction 2. Morbid obesity due to excess calories, BMI 46.2 3. Hypertensive heart disease 4. Gastroesophageal reflux disease POSTOPERATIVE DIAGNOSES: 1. Incarcerated epigastric ventral hernia with bowel obstruction 2. Morbid obesity due to excess calories, BMI 46.2 3. Hypertensive heart disease 4. Gastroesophageal reflux disease 5. Obstructive sleep apnea, untreated OPERATION: 1. Robotic-assisted da Lisa Xi laparoscopic repair of initial incarcerated epigastric ventral hernia with mesh, ventralight ST mesh 11.4 cm Anesthesia: GETA, regional, local Estimated Blood Loss (ml): 5 Pathology: None COMPLICATIONS: None. Operative Findings: 1. Upper midline epigastric ventral hernia defect 4 x 4 cm with incarcerated omentum, small bowel viable upon reduction 2. Fascia repaired using #1 V-lock suture INDICATIONS: The patient is a 71-year-old male who presents with small bowel obstruction due to incarcerated ventral hernia. Urgent surgical intervention with laparoscopic versus robotic and open techniques were reviewed. Placement of mesh was also reviewed. Benefits and risks were thoroughly described. Informed consent was obtained. DESCRIPTION OF PROCEDURE: The patient was brought into the operating room and laid in supine position. After general induction, the abdomen had been prepped and draped in standard sterile fashion. Ioban draping was also placed. Prior to incision, a timeout protocol was confirmed with surgical team regarding the patient's name including procedures to be performed. The robot was primed prior to the procedure. A field block using local anesthetic was placed along hernia site including the proposed port sites. Initial incision was made with an #11 blade along the left upper quadrant. A 0 degree 5 mm laparoscopic trocar entry was performed and insufflated. Three 8 mm ports were placed along the left lateral abdominal wall under direct localization after exchanging the 5-mm for an 8 mm port. Placements of the ports were 15 cm from the target anatomy and 10 cm apart. An accessory 12 mm port was placed at the left upper quadrant for exchange of mesh including sutures. The [employer] Xi robot was previously primed, prepped and draped then docked from the right side of the patient onto the left side of the patient. I then sat at the robot Sapheneiai Xi console where working arms of the robot including Bovie cautery connected to robotic scissors, needle helper driver, and graspers placed by the reference library assistant. Incarcerated omental contents were found along the upper midline defect involving the umbilicus. The defect was reduced of omentum including small bowel after careful pull push technique. The small bowel was viable. Fascial defect midline defect was 4 x 4 cm. The incarcerated contents were reduced as the peritoneal fat was cleaned from the abdominal wall. Next, hemostasis was checked with cautery. The hernia defect was oversewn using #1 nonabsorbable V-lock suture with fascial imbrication x 2. Next, ventralight ST mesh 11.4 cm was placed with the rough side towards the abdominal wall as to cover the epigastric defect. 2-0 VLOC 6 inch nonabsorbable sutures were used to fixate the mesh. A final endoscopic imaging was obtained. All instruments and pneumoperitoneum were evacuated from the abdominal cavity. The da Lisa Xi robot was undocked from the patient. I re-scrubbed into the case for closure of incisions. The fascia of the 12-mm port was probed and less than 8-mm in size. The incisions were reapproximated using 4-0 Monocryl in an interrupted subcuticular fashion. Liquid glue was applied to the skin after cleansing the skin with normal saline and dilute hydrogen peroxide. An abdominal binder was placed. An umbilical dressing was placed prior. At the end of the procedure, needle, sponge, and instrument count had been verified correct by medical delivery technician. The patient was taken to the postanesthesia care unit in stable condition.
[2022-01-17] MEDS: HYDROmorphone 0.5 MG/0.5 ML SYRINGE IVP ONE ×2 (20:57→21:11)
[2022-01-17] MEDS: ACETAMINOPHEN TAB 500 MG TAB PO SCH (23:09)
[2022-01-17] MEDS: KETOROLAC 15 MG/ML 1 ML VIAL IVP SCH (23:10)
[2022-01-18] MEDS: ceFAZolin 3 GM in SODIUM CHLORIDE 0.9% 100 ML IVPB SCH ×2 (04:30→10:57)
[2022-01-18] MEDS: SODIUM CHLORIDE 0.9% 1,000 ML IV SCH ×2 (04:32→10:57)
[2022-01-18] MEDS: ACETAMINOPHEN TAB 500 MG TAB PO SCH ×2 (06:16→10:56)
[2022-01-18] MEDS: KETOROLAC 15 MG/ML 1 ML VIAL IVP SCH ×2 (06:17→13:01)
[2022-01-18] MEDS: ENOXAPARIN 40 MG/0.4 ML SYRINGE SQ SCH (06:17)
[2022-01-18] MEDS: LOSARTAN-HCTZ 50-12.5 MG 1 EACH TAB PO SCH (08:31)
[2022-01-18] MEDS: LOSARTAN 50 MG TAB PO SCH (08:31)
--- NOTE | 2022-01-18 08:36 | CA ---
Transthoracic Echo Report Name: Ilan Batista Age: 71 Gender: M : 1950 Exam Date: 01/17/2022 08:22 Exam Location: [facility] Ht (in): 67 Wt (lb): 295 Ordering Physician: Alyx Jimenez MD Attending/Referring Phys: [id number] Electrical Controls Engineer Karen Cummings RDCS Procedure CPT: Indications: Hypertension, cardiac clearance Cardiac Hx: Technical Quality: Technically difficult study Contrast 1: Lumason Total Dose (mL): 3 Contrast 2: Total Dose (mL): MEASUREMENTS (Male / Female) Normal Values 2D ECHO LV Diastolic Diameter PLAX 3.6 cm 4.2 - 5.9 / 3.9 - 5.3 cm LV Systolic Diameter PLAX 1.9 cm IVS Diastolic Thickness 1.1 cm 0.6 - 1.0 / 0.6 - 0.9 cm LVPW Diastolic Thickness 1.3 cm 0.6 - 1.0 / 0.6 - 0.9 cm LV Relative Wall Thickness 0.7 RV Internal Dim ED PLAX 3.1 cm M-MODE Aortic Root Diameter MM 3.7 cm LA Systolic Diameter MM 4.9 cm LA Ao Ratio MM 1.3 AV Cusp Separation MM 2.3 cm DOPPLER AV Peak Velocity 206.1 cm/s AV Peak Gradient 17.0 mmHg LVOT Peak Velocity 198.4 cm/s LVOT Peak Gradient 15.7 mmHg MV Area PHT 3.7 cm??? Mitral E Point Velocity 84.3 cm/s Mitral A Point Velocity 135.2 cm/s Mitral E to A Ratio 0.6 MV Deceleration Time 204.2 ms TR Peak Velocity 261.3 cm/s TR Peak Gradient 27.3 mmHg Right Ventricular Systolic Press 32.3 mmHg FINDINGS Left Ventricle Mildly increased left ventricular wall thickness. Normal left ventricular systolic function with no obvious regional wall motion abnormalities. Left ventricular ejection fraction is estimated at 55-60 %. Right Ventricle Right ventricle not well visualized. Right Atrium Right atrium not well visualized. Left Atrium Mild left atrial dilatation. Mitral Valve Mitral valve not well visualized. No mitral stenosis. No mitral regurgitation. Aortic Valve Aortic valve not well visualized. Thickened aortic valve without stenosis. No aortic regurgitation. Tricuspid Valve Tricuspid valve not well visualized. Mild tricuspid regurgitation. Pulmonic Valve Pulmonic valve not well visualized. Pericardium Normal pericardium. Aorta Normal size aortic root and proximal ascending aorta. CONCLUSIONS Technically very difficult study for interpretation Normal left ventricular dimension and systolic function. Definity was used Poorly visualized intracardiac valves Previewed by: Dr. Deep Solis MD (Electronically Signed) Final Date: 18 Jan 2022 08:35
[2022-01-18] MEDS: PANTOPRAZOLE 40 MG/10 ML VIAL IV SCH (09:39)
[2022-01-18 09:56] LABS: African American GFR (CKD) 98.5 (60.0-200.0); Albumin 3.5 g/dL (3.8-4.9); Albumin/Globulin Ratio 1.84 (1.60-3.17); Anion Gap 9.8 mmol/L (10.00-18.00); Blood Urea Nitrogen 19.8 mg/dL (9.0-27.0); Carbon Dioxide 27.2 mmol/L (20.0-27.5); Globulin 1.9 g/dL (1.6-3.3); Total Bilirubin 0.4 mg/dL (0.30-1.20); Total Protein 5.4 g/dL (6.2-8.2)
--- NOTE | 2022-01-18 12:22 | P.PN ---
Subjective Progress Note Date: 01/18/22 CHIEF COMPLAINT: Ventral hernia with bowel obstruction HISTORY OF PRESENT ILLNESS: Patient is postop day #1 status post Robotic- assisted da Lisa Xi laparoscopic repair of initial incarcerated epigastric v entral hernia with mesh. Patient reports that his pain is controlled. He has been up and ambulating. He is having flatus. He is tolerating diet. He is afebrile. He is stable for discharge. PHYSICAL EXAM: VITAL SIGNS: Reviewed GENERAL: Well-developed in no acute distress. HEENT: No sclera icterus. Extraocular movements grossly intact. Moist buccal mucosa. Head is atraumatic, normocephalic. Hears conversational speech. No nasal drainage. NECK: Supple without lymphadenopathy. CHEST: Non-labored respirations and equal bilateral excursions. CARDIOVASCULAR: Palpable 2+ radial pulses. ABDOMEN: Soft. Nondistended. Abdominal binder in place MUSCULOSKELETAL: No clubbing or cyanosis. NEUROLOGIC: No focal or lateralizing signs. Cranial nerves II through XII grossly intact. PSYCH: Appropriate affect. Alert and oriented to person, place and time. SKIN: Well perfused. Good skin turgor. ASSESSMENT: 1. Incarcerated epigastric ventral hernia with bowel obstruction 2. Morbid obesity due to excess calories, BMI 46.2 3. Hypertensive heart disease 4. Gastroesophageal reflux disease 5. Obstructive sleep apnea, untreated PLAN: -Patient can be discharged from surgical standpoint -Recommend to continue Tylenol and Motrin for pain -Simethicone drops ordered for gas pains Physician Wireworker Supervisor note has been reviewed by physician. Signing provider agrees with the documented findings, assessment, and plan of care. CHIEF COMPLAINT: Incarcerated ventral hernia with bowel obstruction HISTORY OF PRESENT ILLNESS: The patient is a 71 year old male who status post repair of incarcerated ventral hernia for small bowel obstruction. He feels well. He is tolerating diet. No reports of nausea or vomiting. REVIEW OF ORGAN SYSTEMS: No fevers or chills. No chest pain. No shortness of breath PHYSICAL EXAM: VITALS: Reviewed CONSTITUTIONAL: Well developed and in no acute distress. EYES: Conjuctivae without sclera icterus. Extraocular movements grossly intact. HEAD, EARS, NOSE, THROAT: Moist buccal mucosa. Head is atraumatic, normocephalic. Hears conversational speech. No nasal drainage. RESPIRATORY: Non-labored respirations and equal bilateral excursions. No gross wheezes. CARDIOVASCULAR: Palpable 2+ radial pulses. ABDOMEN: Protuberant. No recurrent hernia. Binder intact. MUSCULOSKELETAL: No clubbing cyanosis or edema. SKIN: Warm and well perfused with good skin turgor. NEUROLOGIC: Cranial nerves II through XII grossly intact. No focal or late ralizing signs. PSYCH: Appropriate affect. Alert and oriented to person, place and time. Displays appropriate insight. CLINCAL LABS: Reviewed. Creatinine normal at 0.9. Electrolytes within normal limits. ASSESSMENT: 1. Small bowel obstruction due to an incarcerated initial ventral hernia 2. Morbid obesity due to excess calories, BMI 46.2 3. Hypertensive heart disease. PLAN: 1. Clinically he is doing well. 2. Stable for discharge from a surgical standpoint 3. No lifting over 4 pounds for 4 weeks. 4. Telehealth follow up in 1 week Objective - Vital Signs Vital signs: Vital Signs Temp 98.4 F 01/18/22 06:15 Pulse 81 01/18/22 06:15 Resp 18 01/18/22 06:15 BP 150/81 01/18/22 06:15 Pulse Ox 96 01/18/22 06:15 FiO2 Intake & Output 01/17/22 01/18/22 01/18/22 18:59 06:59 18:59 Intake Total 1560 800 Output Total 5 Balance 1560 795 Weight 133.81 kg Intake: IV 800 Intake, IV Titration 1560 Amount Sodium Chloride 0.9% 1, 1560 000 ml @ 130 mls/hr IV . [id number] [facility] Rx#:[id number] Output: Estimated Blood Loss 5 Other: # Voids 4 # Bowel Movements 2 - Labs CBC & Chem 7: 01/17/22 04:55 01/18/22 04:55 Labs: Abnormal Lab Results - Last 24 Hours (Table) 01/18/22 Range/Units 04:55 Anion Gap 9.80 L (10.00-18.00) mmol/L BUN/Creatinine Ratio 22.00 H (12.00-20.00) Ratio Calcium 8.0 L (8.7-10.3) mg/dL AST 42 H (14-35) U/L ALT 83 H (10-49) U/L Total Protein 5.4 L (6.2-8.2) g/dL Albumin 3.5 L (3.8-4.9) g/dL Microbiology - Last 24 Hours (Table) 01/16/22 17:45 Blood Culture - Preliminary Blood No Growth after 24 hours
[2022-01-18 14:43] VITALS: BP 165/79; PULSE 86; RESP 17; TEMP 99.5
== END 2022-01-18 17:13 | disposition home or self-care (01) | DRG 354 ==
LOC: EC 14:16 → 4SSUR 21:39
PROVIDERS: ADMIT Internal Medicine; ATTEND Internal Medicine
PROC: 8E0W4CZ Robotic Assisted Procedure of Trunk Region, Percutaneous Endoscopic Approach (ICD-10-PCS; 2022-01-17)
PROC: 0WUF4JZ Supplement Abdominal Wall with Synthetic Substitute, Percutaneous Endoscopic Approach (ICD-10-PCS; principal; 2022-01-17 11:50)
DX: K42.0 Umbilical hernia with obstruction, without gangrene (principal); Z68.42 Body mass index [BMI] 45.0-49.9, adult; E66.01 Morbid (severe) obesity due to excess calories; K21.9 Gastro-esophageal reflux disease without esophagitis; E86.0 Dehydration; G47.33 Obstructive sleep apnea (adult) (pediatric); I11.9 Hypertensive heart disease without heart failure; Z85.828 Personal history of other malignant neoplasm of skin; Z79.899 Other long term (current) drug therapy
CPT/HCPCS: 36415; 74018; 74019; 74177; 80053; 81003; 82150; 82550; 83605; 83690; 83735; 84484; 85025; 87040; 93005; 93306; 96361; 96374; 96375; 96376; 99285

== ENCOUNTER → 2024-10-26 | Outpatient (CLI) | payer MEDICARE ==
[2024-10-26 13:49] VITALS: BP 170/88; PULSE 81; RESP 16; TEMP 97.6
--- NOTE | 2024-10-26 20:45 | P.SLEEP ---
History of Present Illness H&P Date: 10/26/24 This is a 73-year-old male patient is coming in for sleep apnea evaluation. The patient is accompanied by his who used to be a [employer] employee, billing department and the patient and his are both retired at this point. Noted the patient has been having increased snoring and there is a clear history of apneas occurring during sleep. The patient has been noted to stop breathing during sleep. He wakes up excessively fatigued and tired and sleepy during the day. He wakes up unrefreshed despite averaging around 6 to 7 hours of sleep. He goes to bed around 11 PM, wakes up at 8 AM in the morning. His current Hammond score is at 12. Over the years, his weight has remained stable and the patient is currently weighing around 300 pounds. He is drinking 6 cups of coffee throughout the day. He takes naps around noon time and sometimes at around 2 PM. He sleeps on his sides. His sleep is fragmented and the patient wakes up hourly to sip on water for dry mouth, change size and he makes around 2-3 trips to the bathroom for urination. No sleep analysis. Hallucinations. No cataplexy. Does not fall asleep while driving. His snoring is getting worse over the past 15 years. Otherwise, he is a chronic snorer. No major comorbidities other than hypertension. He drinks wine. No smoking. Review of Systems Constitutional: Reports daytime sleepiness, Reports fatigue Eyes: denies as per HPI, denies blurred vision, denies bulging eye, denies decreased vision, denies diplopia, denies discharge, denies dry eye, denies irritation, denies itching, denies pain, denies photophobia, denies loss of peripheral vision, denies loss of vision, denies tunnel vision/blind spots Ears: deny: decreased hearing, ear discharge, earache, tinnitus Ears, nose, mouth and throat: Reports as per HPI Breasts: absent: as per HPI, gynecomastia Cardiovascular: Reports as per HPI Respiratory: Reports snoring Gastrointestinal: Reports as per HPI Genitourinary: Reports as per HPI Musculoskeletal: Reports as per HPI Musculoskeletal: absent: ankle pain, ankle stiffness, ankle swelling, as per HPI, elbow pain, elbow stiffness, elbow swelling, foot pain, foot stiffness, foot swelling, hand pain, hand stiffness, hand swelling, hip pain, hip stiffness, hip swelling, knee pain, knee stiffness, knee swelling, shoulder pain, shoulder stiffness, shoulder swelling, wrist pain, wrist stiffness, wrist swelling Integumentary: Reports as per HPI Neurological: Reports as per HPI Psychiatric: Reports change in sleep habits, Reports hypersomnia, Reports sleep disturbances Endocrine: Reports as per HPI, Reports fatigue Hematologic/Lymphatic: Reports as per HPI Allergic/Immunologic: Reports as per HPI Past Medical History Past Medical History: Hypertension, Osteoarthritis (OA) Additional Past Medical History / Comment(s): hernia, squamous cell skin ca removed History of Any Multi-Drug Resistant Organisms: None Reported Past Surgical History: No Surgical Hx Reported, Hernia Repair Additional Past Surgical History / Comment(s): skin ca removal Past Anesthesia/Blood Transfusion Reactions: No Reported Reaction Past Psychological History: No Psychological Hx Reported Smoking Status: Never smoker Past Alcohol Use History: Occasional Additional Past Alcohol Use History / Comment(s): couple times a week Past Drug Use History: None Reported Medications and Allergies Home Medications Medication Instructions Recorded Confirmed Type Losartan/Hydrochlorothiazide 1 tab PO DAILY 01/16/22 10/26/24 History [Losartan-Hctz 100-12.5 mg Tab] Acetaminophen Tab [Tylenol] 1,000 mg PO Q6HR PRN #30 tablet 01/18/22 10/26/24 Rx Ibuprofen [Motrin] 600 mg PO Q8HR PRN #30 tab 01/18/22 10/26/24 Rx diphenhydrAMINE HCL [Benadryl] 25 mg PO HS 10/26/24 10/26/24 History Allergies Allergy/AdvReac Type Severity Reaction Status Date / Time No Known Allergies Allergy Verified 01/16/22 21:57 Physical Exam Vitals: Vital Signs Temp Pulse Resp BP Pulse Ox 10/26/24 13:47 97.6 F 81 16 170/88 97 Intake and Output 10/26/24 10/26/24 10/26/24 06:59 14:59 22:59 Other: Weight 137.892 kg The patient appeared well nourished and normally developed. Vital signs as documented. Morbidly obese with a BMI of 49. Upper scores of 12. Weight is 304 pounds. Head exam is unremarkable. No scleral icterus or corneal arcus noted. Neck is without jugular venous distension, thyromegaly, or carotid bruits. Carotid upstrokes are brisk bilaterally. Lungs are clear to auscultation and percussion. Cardiac exam reveals the PMI to be normally sized and situated. Rhythm is regular. First and second heart sounds normal. No murmurs, rubs or gallops. Abdominal exam reveals normal bowel sounds, no masses, no organomegaly and no aortic enlargement. Extremities are nonedematous and both femoral and pedal pulses are normal. Examination of the skin revealed no evidence of significant rashes, suspicious appearing nevi or other concerning lesions. Neurologically, the patient is awake and alert and the patient does not have any focal neurological deficit. Cranial nerves are essentially intact. Assessment and Plan Plan: Chronic hypersomnia, Hammond score of 12. Increased suspicion for sleep apnea specially with his history of loud snoring, sleep fragmentation and chronic fatigue/sleepiness. Morbid obesity with a BMI of 48.9 Mallampati class IV Hypertension Osteoarthritis History of skin cancer Plan Increase likelihood for obstructive sleep apnea. The patient will need further investigation. Will set up the patient for a screening polysomnography and the patient is very much interested in therapy if diagnosis of sleep apnea is confirmed. Encourage weight loss Avoid alcohol drinking specially 3 hours prior to going to bed Maintain good sleep hygiene measures and regular sleep schedule Will make further recommendations based on the results of the sleep study. Sleep Note - Sleep Data ESS Total: 12 - Sleep Note Sleep Note: Temperature: 97.6 F Pulse Rate: 81 Respiratory Rate: 16 Blood Pressure: 170/88 SpO2: 97 Height: 5 ft 6 in Weight: 137.892 kg BMI: Neck Circumference: 22.2
== END ==
LOC: 3 N SLEEP 13:09
PROVIDERS: ATTEND Internal Medicine Critical Care Medicine
DX: G47.10 Hypersomnia, unspecified (principal); E66.01 Morbid (severe) obesity due to excess calories; I10 Essential (primary) hypertension; M19.90 Unspecified osteoarthritis, unspecified site; Z68.42 Body mass index [BMI] 45.0-49.9, adult; Z85.828 Personal history of other malignant neoplasm of skin
CPT/HCPCS: 99202

== ENCOUNTER 2024-11-24 19:25 | Outpatient (CLI) | payer MEDICARE ==
--- NOTE | 2024-12-08 22:38 | P.PCN ---
Date of Procedure: 11/24/24 Operative Findings: Polysomnography report Date of service is 11/24/2024 History This is a 73-year-old male patient is coming in for sleep apnea evaluation. The patient is accompanied by his who used to be a [employer] employee, billing department and the patient and his are both retired at this point. Noted the patient has been having increased snoring and there is a clear history of apneas occurring during sleep. The patient has been noted to stop breathing during sleep. He wakes up excessively fatigued and tired and sleepy during the day. He wakes up unrefreshed despite averaging around 6 to 7 hours of sleep. He goes to bed around 11 PM, wakes up at 8 AM in the morning. His current Canaan score is at 12. Over the years, his weight has remained stable and the patient is currently weighing around 300 pounds. He is drinking 6 cups of coffee throughout the day. He takes naps around noon time and sometimes at around 2 PM. He sleeps on his sides. His sleep is fragmented and the patient wakes up hourly to sip on water for dry mouth, change size and he makes around 2-3 trips to the bathroom for urination. No sleep analysis. Hallucinations. No cataplexy. Does not fall asleep while driving. His snoring is getting worse over the past 15 years. Otherwise, he is a chronic snorer. No major comorbidities other than hypertension. He drinks wine. No smoking. Pertinent physical findings Weight is 304 pounds with a BMI of 49.1 Technical description The patient was studied using a standard complex polysomnography protocol that included recording of the Lead II EKG, Central, occipital and frontal EEG, right and left outer canthus EOG, submental EMG, right and left anterior tibialis EMG, respiratory airflow by thermocouple and or pressure/flow transducer, respiratory efforts by abdominal and thoracic PVDF belts, oxygen saturation by cable oximetry. Position by observation synchronized the PSG. Equipment used: [employer]. Sleep architecture The total recording duration was 4 9.5 minutes. The total sleep time was 201.5 minutes. The wake after sleep onset time was 175.5 minutes. The overall sleep efficiency was poor calculated to be at 49.2%. The latency to sleep onset was 32 minutes. The latency to REM sleep was 3 and 45.0 minutes. The sleep architecture was characterized by 17.6% stage I, 70.5% stage II, 2% stage III and a total of 9.9% REM sleep. The total arousal index was 53.9. Respiratory analysis The sleep study showed a total of 201 obstructive events of which 139 with obstructive apneas, 0 mixed apneas and 62 obstructive hypopneas. The resulting apnea-hypopnea index was 60.4. The patient also had a total of 10 central apneas with a central apnea index of 3.0. The overall respiratory arousal index was 33.9 Oxygenation analysis The patient had a baseline pulse ox of 92% while awake. Lowest oxygen saturation was 69% during sleep. The patient spent approximately 63 minutes of the sleep time below pulse ox of 89% and this accounted for 15.6% of the overall recording time. This is considered significant nocturnal oxygen desaturations Arousal events A total of 181 arousals were counted with an index of 53.9. The respiratory arousal index was 33.9 Periodic movement activity A total of 8 periodic limb movement activity with an index of 2.4. The PLM arousal index was was 0.3. Cardiac summary The average heart rate was 69 with a minimum heart rate of 63 and a maximum heart of 80 Assessment Severe symptomatic KWADWO with an AHI of 60.4. Patient also encountered severe nocturnal oxygen desaturation with a minimum pulse ox of 69% during sleep. Chronic hypersomnia, Canaan score of 12. Poor sleep efficiency of 49.2% Delayed sleep onset Abnormal sleep architecture with representation of stage I and stage II sleep and diminished delta wave and REM Morbid obesity with a BMI of 48.9 Mallampati class IV Hypertension Osteoarthritis History of skin cancer Plan The patient will be asked to come to the sleep center to undergo a CPAP titration to treat severe symptomatic obstructive sleep apnea Encourage weight loss Avoid alcohol drinking specially 3 hours prior to going to bed Maintain good sleep hygiene measures and regular sleep schedule Will follow
== END 2024-11-25 05:35 | disposition home or self-care (01) ==
LOC: 3 N SLEEP 19:25
PROVIDERS: ATTEND Internal Medicine Critical Care Medicine
DX: G47.33 Obstructive sleep apnea (adult) (pediatric) (principal); E66.01 Morbid (severe) obesity due to excess calories; I10 Essential (primary) hypertension; M19.90 Unspecified osteoarthritis, unspecified site; Z85.828 Personal history of other malignant neoplasm of skin; Z68.42 Body mass index [BMI] 45.0-49.9, adult
CPT/HCPCS: 95810

== ENCOUNTER 2024-12-23 19:20 | Outpatient (CLI) | payer MEDICARE ==
--- NOTE | 2025-01-09 21:55 | P.PCN ---
Date of Procedure: 12/23/24 Operative Findings: CPAP titration report History This is a 73-year-old male patient is coming in for sleep apnea evaluation. The patient is accompanied by his who used to be a [employer] employee, billing department and the patient and his are both retired at this point. Noted the patient has been having increased snoring and there is a clear history of apneas occurring during sleep. The patient has been noted to stop breathing during sleep. He wakes up excessively fatigued and tired and sleepy during the day. He wakes up unrefreshed despite averaging around 6 to 7 hours of sleep. He goes to bed around 11 PM, wakes up at 8 AM in the morning. His current Clearwater score is at 12. Over the years, his weight has remained stable and the patient is currently weighing around 300 pounds. He is drinking 6 cups of coffee throughout the day. He takes naps around noon time and sometimes at around 2 PM. He sleeps on his sides. His sleep is fragmented and the patient wakes up hourly to sip on water for dry mouth, change size and he makes around 2-3 trips to the bathroom for urination. No sleep analysis. Hallucinations. No cataplexy. Does not fall asleep while driving. His snoring is getting worse over the past 15 years. Otherwise, he is a chronic snorer. No major comorbidities other than hypertension. He drinks wine. No smoking. The patient underwent a polysomnography and the patient was found to have severe obstructive sleep apnea with an AHI of 60.4 with significant nocturnal oxygen desaturations and poor sleep efficiency. Based on that, the patient is coming in for CPAP titration. Pertinent physical findings Weight is 304 pounds with a BMI of 49.1 Technical description The patient was studied using a standard complex polysomnography protocol that included recording of the Lead II EKG, Central, occipital and frontal EEG, right and left outer canthus EOG, submental EMG, right and left anterior tibialis EMG, respiratory airflow by thermocouple and or pressure/flow transducer, respiratory efforts by abdominal and thoracic PVDF belts, oxygen saturation by cable oximetry. Position by observation synchronized the PSG. Equipment used: [employer]. Stepwise CPAP titration was done to limit all obstructive respiratory events Sleep architecture The total recording duration was 413 minutes. The total sleep time was 259.5 minutes. The wake after sleep onset time was 133 minutes. Sleep efficiency seems to have improved while on CPAP therapy calculated to be at 62.8%. The latency to REM sleep was 246 minutes and relates to regular sleep was 17 minutes. The sleep architecture was characterized by 17.1% stage I, 54.5% stage II, 10.6% stage III and a total of 17.7% REM sleep. The total arousal index was 31.4 CPAP titration summary The patient was started on CPAP therapy and the patient was initially started on a CPAP pressure of 5 cm of water and the pressure was increased gradually to a CPAP pressure of 7 cm of water. The patient was noted to have significant obstructive apneas and significant nocturnal oxygen desaturations. Following that, the patient was switched to BiPAP initially at a pressure of 9/5 cm of water admitted maximum BiPAP pressure achieved was 16/12 cm of water. There was improvement in the severity of sleep apnea and obstructive respiratory events while on BiPAP therapy. Considerable improvement was noted on a BiPAP pressures of 15 over 11 cm of water. Patient failed CPAP therapy, improved on BiPAP therapy with improvement in oxygenation and various sleep stages and body positions Sleep continuity summary The patient has a arousal index of 31.4 with a total number of arousals of 136. The respiratory arousal index was 14.3 Periodic limb movement summaries The patient had a total of 71 periodic limb movement activity with a index of 16.4. No arousals related to periodic leg movement activity Cardiac summary Average heart rate was 66 with a minimum heart rate of 61 and a maximum heart of 74 Assessment Severe symptomatic KWADWO with an AHI of 60.4. Patient also encountered severe nocturnal oxygen desaturation with a minimum pulse ox of 69% during sleep. Based on his current titration, CPAP therapy failed to eliminate obstructive respiratory events and the patient continued to have desaturations. Based on that, the patient was given a BiPAP titration starting at pressures of 9/5 and BiPAP therapy seems to be much more effective to treat this patient's obstructive sleep apnea. Chronic hypersomnia, Clearwater score of 12. Poor sleep efficiency improved while on CPAP therapy/BiPAP therapy calculated to be at 62.8 Morbid obesity with a BMI of 48.9 Mallampati class IV Hypertension Osteoarthritis History of skin cancer Plan The patient will be started on BiPAP therapy. Suggesting a VPAP auto with a EPAP minimum of 5 and a maximum pressure of 16 and a pressure support of 4. The patient will be given an AirFit F20 fullface mask medium size. Encourage weight loss Avoid alcohol drinking specially 3 hours prior to going to bed Maintain good sleep hygiene measures and regular sleep schedule Will follow. The patient will see back in 30 to 90 days to assess clinical response and compliancy.
== END 2024-12-24 05:42 | disposition home or self-care (01) ==
LOC: 3 N SLEEP 19:20
PROVIDERS: ATTEND Internal Medicine Critical Care Medicine
DX: G47.33 Obstructive sleep apnea (adult) (pediatric) (principal); I10 Essential (primary) hypertension; M19.90 Unspecified osteoarthritis, unspecified site; E66.01 Morbid (severe) obesity due to excess calories; Z68.42 Body mass index [BMI] 45.0-49.9, adult; Z85.828 Personal history of other malignant neoplasm of skin; Z99.89 Dependence on other enabling machines and devices
CPT/HCPCS: 95811